=== PATIENT | female | born 1945 | race Caucasian/White ===

== ENCOUNTER 2022-11-01 06:53 | Inpatient (IN) | payer MEDICARE, BC ==
--- NOTE | 2022-11-01 07:36 | ED ---
General Adult HPI - General Chief complaint: Neuro Symptoms/Deficit Stated complaint: Left hand weakness Time Seen by Provider: 11/01/22 07:06 Source: patient Mode of arrival: ambulatory Limitations: no limitations - History of Present Illness Initial comments: Dictation was produced using [employer] dictation software. please excuse any grammatical, word or spelling errors. Chief Complaint: 77-year-old female presents with episodic left upper extremity paresthesias and weakness History of Present Illness: 77-year-old female has no past medical history of CVA. She has history of hypertension and treated breast cancer. Patient takes hypertensive medications. They're visiting from [place]. Patient states that she will this morning feeling fine. She tried to greens picker an object and all of a sudden lost dexterity and strength in her left upper extremity. She continually dropped items. Patient felt fine yesterday. States that her symptoms of weakness seemed to be sputtering. Patient since being in the ER does not complain of any weakness. She does complain of some paresthesias to the lungs. Doesn't feel like it is numb however does not feel right is what she mentions. at the bedside states that he did notany confusion or slurred speech The ROS documented in this emergency department record has been reviewed and confirmed by me. Those systems with pertinent positive or negative responses have been documented in the HPI. All other systems are other negative and/or noncontributory. - Related Data Home Medications Medication Instructions Recorded Confirmed Losartan [Cozaar] 50 mg PO DAILY 11/01/22 11/01/22 Metoprolol Succinate (ER) [Toprol 50 mg PO DAILY 11/01/22 11/01/22 Xl] Raloxifene [Evista] 60 mg PO HS 11/01/22 11/01/22 amLODIPine BESYLATE 5 mg PO DAILY 11/01/22 11/01/22 Allergies Allergy/AdvReac Type Severity Reaction Status Date / Time MARE Inhibitors AdvReac Cough Verified 11/01/22 07:04 Sulfa (Sulfonamide AdvReac Unknown Verified 11/01/22 07:04 Antibiotics) Childhood Review of Systems ROS Statement: Those systems with pertinent positive or pertinent negative responses have been documented in the HPI. ROS Other: All systems not noted in ROS Statement are negative. Past Medical History Past Medical History: Cancer, Hypertension Additional Past Medical History / Comment(s): Current tx for breast cancer History of Any Multi-Drug Resistant Organisms: None Reported Past Surgical History: Tubal Ligation Additional Past Surgical History / Comment(s): Breast surgery, eye surgery Smoking Status: Never smoker Past Alcohol Use History: None Reported Past Drug Use History: None Reported General Exam - General Exam Comments Initial Comments: PHYSICAL EXAM: General Impression: Alert and oriented x3, not in acute distress HEENT: Normocephalic atraumatic, extra-ocular movements intact, pupils equal and reactive to light bilaterally, mucous membranes moist. Cardiovascular: Heart regular rate and rhythm Chest: Able to complete full sentences, no retractions, no tachypnea Abdomen: abdomen soft, non-tender, non-distended, no organomegaly Musculoskeletal: Pulses present and equal in all extremities, no peripheral edema Motor: no focal deficits noted Neurological: CN II-XII grossly intact, no focal motor or sensory deficits noted, reported decreased sensation to light touch of the left forearm and distally Skin: Intact with no visualized rashes Psych: Normal affect and mood Limitations: no limitations Course Vital Signs 11/01/22 11/01/22 11/01/22 06:59 07:48 08:00 Temperature 97.5 F L Pulse Rate 70 74 68 Respiratory 18 18 16 Rate Blood Pressure 155/71 133/68 O2 Sat by Pulse 92 L 96 94 L Oximetry 11/01/22 11/01/22 08:30 09:00 Temperature Pulse Rate 75 65 Respiratory 16 18 Rate Blood Pressure 122/77 123/67 O2 Sat by Pulse 95 97 Oximetry EKG Findings - EKG Comments: EKG Findings:: My EKG interpretation: Ventricular rate 66, sinus rhythm,. Interval 193, QRS 97, QTC 398. No PA prolongation, no QTC prolongation, no ST or T-wave changes noted. Overall, this EKG is unremarkable Medical Decision Making - Medical Decision Making Was pt. sent in by a medical professional or institution (, PA, PL SQL DEVELOPER, urgent care, hospital, or [place] [facility] [place] facility...) When possible be specific @ -No Did you speak to anyone other than the patient for history (EMS, parent, family, police, friend...)? What history was obtained from this source @ -No Did you review nursing and triage notes (agree or disagree)? Why? @ -I reviewed and agree with nursing and triage notes Were old charts reviewed (outside hosp., previous admission, EMS record, old EKG, old radiological studies, urgent care reports/EKG's, [place] health [place] facility records)? Report findings @ -No old charts were reviewed Differential Diagnosis (chest pain, altered mental status, abdominal pain women, abdominal pain men, vaginal bleeding, musculoskeletal, weakness, fever, dyspnea, syncope, headache, dizziness, GI bleed, back pain, seizure, CVA, palp atations, mental health)? @ - Differential CVA: Ischemic stroke, hemorrhagic stroke, brain tumor, atypical migraine, Wernicke's encephalopathy, seizure, multiple sclerosis, meningitis, encephalitis, hypoglycemia, Guillain-Ross, electrolytes disturbance, myasthenia gravis.... This is not meant to be an all-inclusive list EKG interpreted by me (3pts min.). @ -see above X-rays interpreted by me (1pt min.). @ -Chest x-ray is nonacute CT interpreted by me (1pt min.). @ -CT scan of the brain is nonacute U/S interpreted by me (1pt. min.). @ -None done What testing was considered but not performed or refused? (CT, X-rays, U/S, labs)? Why? @ -None What meds were considered but not given or refused? Why? @ -None Did you discuss the management of the patient with other professionals (professionals i.e. , PA, PL SQL DEVELOPER, lab, RT, psych nurse, social science professor, vessel captain, teacher, weapons officer naval activity, telephonic case manager)? Give summary @ -Clinical presentation, labs and imaging studies were discussed with Dr. Otero for admission Was smoking cessation discussed for >3mins.? @ -No Was critical care preformed (if so, how long)? @ -No Were there social determinants of health that impacted care today? How? (Homelessness, low income, unemployed, alcoholism, drug addiction, transportation, low edu. Level, literacy, decrease access to med. care, care home, rehab)? @ -No Was there de-escalation of care discussed even if they declined (Discuss DNR or withdrawal of care, Hospice)? DNR status @ -No What co-morbidities impacted this encounter? (DM, HTN, Smoking, COPD, CAD, Cancer, CVA, ARF, Chemo, Hep., AIDS, mental health diagnosis, sleep apnea, morbid obesity)? @ -None Was patient admitted / discharged? Hospital course, mention meds given and route, prescriptions, significant lab abnormalities, going to OR and other pertinent info. @ -77-year-old female presents emergency Department with strokelike symptoms. Patient is a candidate for alteplase or thrombectomy due to low NIH score and risk outweigh benefits. While in the ER she had sputtering symptoms. Vital signs upon arrival are within acceptable limits. Labs unremarkable. Imaging studies are unremarkable. Patient given aspirin will be admitted with neurology consultation Undiagnosed new problem with uncertain prognosis? @ -No Drug Therapy requiring intensive monitoring for toxicity (Heparin, Nitro, Insulin, Cardizem)? @ -No Were any procedures done? @ -No Diagnosis/symptom? Acute, or Chronic, or Acute on Chronic? Uncomplicated (without systemic symptoms) or Complicated (systemic symptoms)? @ -1. Acute CVA Side effects of treatment? @ -No Exacerbation, Progression, or Severe Exacerbation? @ -No Poses a threat to life or bodily function? How? (Chest pain, [place], [place], pneumonia, PE, COPD, DKA, ARF, appy, cholecystitis, CVA, Diverticulitis, Homicidal, Suicidal, threat to staff... and all critical care pts) @ -yes - Lab Data Result diagrams: 11/01/22 07:37 11/01/22 07:37 Lab Results 11/01/22 11/01/22 11/01/22 Range/Units 07:37 07:37 07:37 WBC 4.2 (3.8-10.6) k/uL RBC 4.56 (3.80-5.40) m/uL Hgb 14.6 (11.4-16.0) gm/dL Hct 45.4 (34.0-46.0) % MCV 99.6 (80.0-100.0) fL MCH 32.1 (25.0-35.0) pg MCHC 32.2 (31.0-37.0) g/dL RDW 13.8 (11.5-15.5) % Plt Count 242 (150-450) k/uL MPV 7.8 Neutrophils % 71 % Lymphocytes % 21 % Monocytes % 5 % Eosinophils % 1 % Basophils % 0 % Neutrophils # 3.0 (1.3-7.7) k/uL Lymphocytes # 0.9 L (1.0-4.8) k/uL Monocytes # 0.2 (0-1.0) k/uL Eosinophils # 0.1 (0-0.7) k/uL Basophils # 0.0 (0-0.2) k/uL PT 10.2 (9.0-12.0) sec INR 1.0 (<1.2) APTT 23.3 (22.0-30.0) sec Sodium 141 (137-145) mmol/L Potassium 4.0 (3.5-5.1) mmol/L Chloride 105 (98-107) mmol/L Carbon Dioxide 25 (22-30) mmol/L Anion Gap 11 mmol/L BUN 16 (7-17) mg/dL Creatinine 0.78 (0.52-1.04) mg/dL Est GFR (CKD-EPI)AfAm 86 (>60 ml/min/1.73 sqM) Est GFR (CKD-EPI)NonAf 74 (>60 ml/min/1.73 sqM) Glucose 121 H (74-99) mg/dL Calcium 8.9 (8.4-10.2) mg/dL Total Bilirubin 0.8 (0.2-1.3) mg/dL AST 22 (14-36) U/L ALT 17 (4-34) U/L Alkaline Phosphatase 87 (38-126) U/L Creatine Kinase 73 (30-135) U/L Troponin I (0.000-0.034) ng/mL Total Protein 7.4 (6.3-8.2) g/dL Albumin 4.2 (3.5-5.0) g/dL 11/01/22 Range/Units 07:37 WBC (3.8-10.6) k/uL RBC (3.80-5.40) m/uL Hgb (11.4-16.0) gm/dL Hct (34.0-46.0) % MCV (80.0-100.0) fL MCH (25.0-35.0) pg MCHC (31.0-37.0) g/dL RDW (11.5-15.5) % Plt Count (150-450) k/uL MPV Neutrophils % % Lymphocytes % % Monocytes % % Eosinophils % % Basophils % % Neutrophils # (1.3-7.7) k/uL Lymphocytes # (1.0-4.8) k/uL Monocytes # (0-1.0) k/uL Eosinophils # (0-0.7) k/uL Basophils # (0-0.2) k/uL PT (9.0-12.0) sec INR (<1.2) APTT (22.0-30.0) sec Sodium (137-145) mmol/L Potassium (3.5-5.1) mmol/L Chloride (98-107) mmol/L Carbon Dioxide (22-30) mmol/L Anion Gap mmol/L BUN (7-17) mg/dL Creatinine (0.52-1.04) mg/dL Est GFR (CKD-EPI)AfAm (>60 ml/min/1.73 sqM) Est GFR (CKD-EPI)NonAf (>60 ml/min/1.73 sqM) Glucose (74-99) mg/dL Calcium (8.4-10.2) mg/dL Total Bilirubin (0.2-1.3) mg/dL AST (14-36) U/L ALT (4-34) U/L Alkaline Phosphatase (38-126) U/L Creatine Kinase (30-135) U/L Troponin I <0.012 (0.000-0.034) ng/mL Total Protein (6.3-8.2) g/dL Albumin (3.5-5.0) g/dL Disposition Clinical Impression: Cerebrovascular accident (CVA) Disposition: ADMITTED IP TO THIS [facility] Condition: Fair Referrals: Nonstaff,Physician [Primary Care Provider] - 1-2 days Decision Time: 09:00
[2022-11-01 07:46] LABS: Basophils % (A) 0 %; Eosinophils # (A) 0.1 k/uL (0-0.7); Eosinophils % (A) 1 %; HCT 45.4 % (34.0-46.0); HGB 14.6 gm/dL (11.4-16.0); Lymphocytes # (A) 0.9 k/uL (1.0-4.8); Lymphocytes % (A) 21 %; MCH 32.1 pg (25.0-35.0); MCHC 32.2 g/dL (31.0-37.0); MCV 99.6 fL (80.0-100.0); Mean Platelet Volume 7.8; Monocytes # (A) 0.2 k/uL (0-1.0); Monocytes % (A) 5 %; Neutrophils % (A) 71 %; Platelet Count 242 k/uL (150-450); RBC 4.56 m/uL (3.80-5.40); RDW 13.8 % (11.5-15.5); WBC 4.2 k/uL (3.8-10.6)
[2022-11-01 07:59] LABS: Partial Thromboplastin Time 23.3 sec (22.0-30.0); Prothrombin Time 10.2 sec (9.0-12.0)
[2022-11-01 08:05] LABS: Albumin 4.2 g/dL (3.5-5.0); Calcium 8.9 mg/dL (8.4-10.2); Total Bilirubin 0.8 mg/dL (0.2-1.3); Total Protein 7.4 g/dL (6.3-8.2)
--- NOTE | 2022-11-01 08:37 | XR ---
EXAMINATION TYPE: XR chest 1V portable DATE OF EXAM: 11/01/2022 COMPARISON: NONE HISTORY: Altered mental status and weakness. TECHNIQUE: Single frontal view of the chest is obtained. FINDINGS: There is no focal air space opacity, pleural effusion, or pneumothorax seen. The cardiac silhouette size is within normal limits. The osseous structures are intact. Overlying EKG leads are seen. IMPRESSION: No acute process.
--- NOTE | 2022-11-01 08:38 | CT ---
EXAMINATION TYPE: CT brain wo con DATE OF EXAM: 11/01/2022 HISTORY: left arm weakness. Acute onset neuro deficit. Dizziness. CT DLP: 1076.4 mGycm. Automated Exposure Control for Dose Reduction was Utilized. TECHNIQUE: CT scan of the head is performed without contrast. COMPARISON: None. FINDINGS: There is no acute intracranial hemorrhage or midline shift identified. There is mild-to-m oderate diffuse ventricular and sulcal prominence. There is mild to moderate low-attenuation in the deep and periventricular white matter. No suspicious opacification mastoid air cells bilaterally. Pe rsistent anterior metopic suture which is normal variant The globes are intact and the visualized sin uses are clear. IMPRESSION: No acute intracranial hemorrhage or midline shift. There is mild to moderate diffuse ag e-related cerebral atrophy and chronic small vessel ischemic change noted.
[2022-11-01] MEDS ORDERED: ASPIRIN 81 MG PO STA (09:08)
[2022-11-01] MEDS ORDERED: NALOXONE 0.4 MG/ML 1 ML VIAL IV PRN (09:29)
--- NOTE | 2022-11-01 17:30 | P.CNNES ---
History of Present Illness Consult date: 11/01/22 Requesting physician: Bebeto Cunningham Reason for Consult: left arm numbness History of Present Illness: This is a 77-year-old woman with history of hypertension, borderline hypercholesterolemia who presented emergency department because of left upper extremity weakness area did patient stated that she woke up at 4:30 and was at baseline. Then 5 AM she noticed that her left pinky finger was swollen and she could not get her ring out. Denies any weakness or numbness or any focal deficit. Then the around 6 AM she noticed that she is having left hand weakness. She felt she was dropping things out of the left hand and happened multiple times. She denies any numbness to me but it seems that she notified her that she had some numbness in the left upper extremity at. Her left upper extremity weakness lasted about 15 minutes but happen multiple times and the last episode was around between 10 and 11 AM today. Otherwise denies of any other neurological issues appear denies history of stroke or TIAs. She denies being on any antiplatelets. Denies history of atrial fibrillation or flutter. Currently the patient feels she is back to baseline. Some of the workup during his hospital visit consisted of: CBC with differential on top present management metabolic panel is unremarkable CT of the head is reported as no acute intracranial hemorrhage of midline shift. There is mild to moderate diffuse age-related cerebral atrophy and chronic small vessel ischemic changes noted. I personally reviewed the CT I agree there is no acute or subacute ischemia. There is no bleed. EKG is reported as sinus rhythm. Borderline left axis deviation. The ED patient has low NIH stroke scale and no IV TPA because of the risk outweighed the benefit. Review of Systems Review of system: The 12 point system was reviewed and apparent positive and negative per HPI. Past Medical History Past Medical History: Cancer, Hypertension Additional Past Medical History / Comment(s): Current tx for breast cancer History of Any Multi-Drug Resistant Organisms: None Reported Past Surgical History: Tubal Ligation Additional Past Surgical History / Comment(s): Lt breast lumpectomy, eye surgery Smoking Status: Never smoker Past Alcohol Use History: None Reported Past Drug Use History: None Reported Medications and Allergies Home Medications Medication Instructions Recorded Confirmed Type Losartan [Cozaar] 50 mg PO DAILY 11/01/22 11/01/22 History Metoprolol Succinate (ER) [Toprol 50 mg PO DAILY 11/01/22 11/01/22 History Xl] Raloxifene [Evista] 60 mg PO HS 11/01/22 11/01/22 History amLODIPine BESYLATE 5 mg PO DAILY 11/01/22 11/01/22 History Allergies Allergy/AdvReac Type Severity Reaction Status Date / Time MARE Inhibitors AdvReac Cough Verified 11/01/22 11:35 Sulfa (Sulfonamide AdvReac Unknown Verified 11/01/22 11:35 Antibiotics) Childhood Physical Examination - Vital Signs Vital Signs: Vital Signs Temp Pulse Pulse Resp BP BP Pulse Ox 11/01/22 12:00 98.1 F 71 16 134/70 97 11/01/22 11:03 98.2 F 64 18 123/70 99 11/01/22 09:00 65 18 123/67 97 11/01/22 08:30 75 16 122/77 95 11/01/22 08:00 68 16 133/68 94 L 11/01/22 07:48 74 18 96 11/01/22 06:59 97.5 F L 70 18 155/71 92 L Intake and Output 11/01/22 11/01/22 11/01/22 06:59 14:59 22:59 Intake Total 110 Balance 110 Intake: Oral 110 Other: Weight 77.111 kg 77.111 kg GENERAL: The patient is lying in bed and is not in acute distress. CHEST: No edema in extremities. LUNG: Not labored breathing. NEUROLOGICAL: Higher mental function: The patient is awake, alert, oriented to self, place and time. Patient is following commands. No aphasia and no neglect. Cranial nerves: The pupils are round, equal and reactive to light and accommodation. Visual pope are full to confrontation throughout. Extraocular movement is intact no nystagmus is noted. Facial sensation is normal to touch throughout. The facial strength is normal throughout. Hearing is normal bilat erally to hand rub. Tongue is midline and moved [id number] without any difficulty. No dysarthria is noted. Shoulder shrug is normal bilaterally. Motor: The strength is 5 over 5 throughout. Normal tone and bulk. Cerebellum: Normal finger to nose bilaterally. Sensation: Sensation is normal to touch throughout. Reflexes (right/left): 2+ throughout. Plantars are downgoing bilaterally. Results - Laboratory Findings CBC and BMP: 11/01/22 07:37 11/01/22 07:37 Abnormal Lab Findings: Abnormal Labs 11/01/22 11/01/22 07:37 07:37 Lymphocytes # 0.9 L Glucose 121 H Assessment and Plan Assessment: This is a 77-year-old woman who presented the to the emergency because of left upper extremity weakness and some numbness but predominantly weakness and had multiple episode today. Because episode of left upper extremity weakness distally with some numbness: Likely TIA History of hypertension Borderline hypercholesteremia Plan: I ordered MRI of the brain with and without. The patient was given aspirin 324 mg once in the ED. I started the patient on aspirin 325 mg daily and Plavix 75 mg daily. I*on Lipitor 40 mg daily at bedtime for secondary stroke prophylaxis Carotid duplex, 2-D echo is ordered pending. I ordered lipid panel, hemoglobin A1c, TSH. Every 4 hours neuro checks Placed on cardiac monitoring PT and OT are consulted We'll defer the rest of the medical management to primary team For DVT prophylaxis start the patient on subcu heparin 5000 units every 12 hours The plan was discussed with the patient, her was at bedside and her nurse. Thank you consultation Time with Patient: Greater than 30
[2022-11-01] MEDS: CLOPIDOGREL 75 MG TAB PO SCH (17:52)
--- NOTE | 2022-11-01 19:02 | P.HPIM ---
History of Present Illness H&P Date: 11/01/22 History of Presenting Illness: Patient is a very pleasant 77-year-old female with a past medical history of hypertension, hyperlipidemia, and breast cancer status post lumpectomy currently on Evista. She presented to the emergency department secondary to left hand numbness and weakness. Patient reports awakening this morning and felt as though her peak may have been swollen and was unable to get her rings off her pinky finger. 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 Patient reports she went to put a plastic bag in her car but when she bent over to pick it up she was unable to grab it or hold onto it dropping at 8 times. This is when she realized she was having numbness and weakness in her left hand. In addition patient reports pain/tingling sensation to her right temporal/occipital region of her head accompanied by an intermittent episode of changes in her vision. She denies hitting her head or experiencing any falls or recent injuries and denies experiencing any neck or back pain. Patient denies being on any blood thinners and denies ever having an experience like this in the past. She denies having any fevers, chills, dizziness, lightheadedness, changes in hearing or tinnitus, difficulty with her speech or swallowing, chest pain, palpitations, shortness of breath, or experiencing any noted numbness or weakness in her lower extremities. She states this numbness/tingling and weakness in her left hand has waxed and waned over the past few hours. Patient presented to the emergency department and underwent full evaluation. CT brain was completed and negative for acute intercranial hemorrhage revealing mild to moderate diffuse age related cerebral atrophy and chronic small vessel ischemic changes. EKG completed showing normal sinus rhythm at 66 bpm with no noted T wave or ST abnormality showing no signs of acute ischemia upon personal review and interpretation. Chest x-ray negative for acute process. Labs completed and reviewed. CBC, coagulation profile, and CMP were unremarkable. Troponin negative at less than 0.012. TSH normal at 2.310. Patient given aspirin 324 mg by mouth 1 dose and admitted under our services with consultation to neurology. Review of systems: Pertinent positives and negatives as discussed in HPI, a complete review of systems was performed and all other systems are negative. Physical exam: Vital signs reviewed and stable. General: Nontoxic, no distress and appears stated age. Derm: Skin warm and dry, normal coloration for ethnicity. Head: Atraumatic, normocephalic and symmetric. Eyes: EOMs intact, no lid lag, and anicteric sclera Mouth: no lip lesions, mucus membranes moist Cardiovascular: regular rate and rhythm with normal S1S2, systolic murmur, positive posterior tibial pulses bilaterally, and cap refill < 2 seconds. Lungs: Respirations even, regular, and unlabored on room air. Lungs CTA bilaterally, no rhonchi, no rales, no wheezing, and no accessory muscle usage. Abdominal: soft, nontender to palpation, no guarding, no appreciable organomegaly Ext: ROM intact. No gross muscle atrophy, no edema, no contractures Neuro: Speech clear, face symmetrical and CN II-XII grossly intact with no noted focal neuro deficitsGCS 15. Currently no neurological deficits noted at this time. Psych: Alert and oriented to person, place, time, and situation. Appropriate and pleasant affect. Assessment and Plan of Care: Left upper extremity weakness, numbness and tingling, rule out TIA versus CVA Hypertension Hyperlipidemia History of breast cancer status post lumpectomy on Evista -CT brain was completed and negative for acute intercranial hemorrhage revealing mild to moderate diffuse age related cerebral atrophy and chronic small vessel ischemic changes. -EKG completed showing normal sinus rhythm at 66 bpm with no noted T wave or ST abnormality showing no signs of acute ischemia upon personal review and interpretation. -Labs completed and reviewed. CBC, coagulation profile, and CMP were unremarkable. Troponin negative at less than 0.012. TSH normal at 2.310. -Patient given aspirin 324 mg by mouth 1 dose and admitted under our services with consultation to neurology. -Order placed for echocardiogram and carotid Dopplers -Called and discussed with neurologist, neurology to evaluate and reports plans to order MRI brain -Discussed with neurology patient to be placed on aspirin 325 mg daily, Plavix 75 mg daily, and atorvastatin 40 mg daily. -Lipid profile hemoglobin A1c to be completed with a.m. labs. -Patient to be placed on telemetry monitoring -Continue neuro checks every 4 hours -Hold the Evista at this time as has been known to result in thromboembolism and stroke -Allow for permissive hypertension over the next 24 hours and patient may resume daily antihypertensive medications with amlodipine 5 mg daily, losartan 50 mg daily, and metoprolol 50 mg daily starting tomorrow morning. The patient is admitted with an anticipated greater than 2 midnight stay for evaluation of a CVA versus TIA CODE STATUS: Full code DVT prophylaxis: Heparin Discussed with: Patient, patient's , ED physician, and neurologist Anticipated discharge date: Clinical course to determine Anticipated discharge place:Home Patient was seen independently by Nurse Practitioner. This document was prepared using [employer] dictation software. Please allow for errors in dough machine operator while rare they do occur. Reid Puente NP rendered care for this patient independently, reviewed the findings and plan as documented in the note above. I did not physically speak with or examine the patient on this date. Past Medical History Past Medical History: Cancer, Hypertension Additional Past Medical History / Comment(s): Current tx for breast cancer History of Any Multi-Drug Resistant Organisms: None Reported Past Surgical History: Tubal Ligation Additional Past Surgical History / Comment(s): Breast surgery, eye surgery Smoking Status: Never smoker Past Alcohol Use History: None Reported Past Drug Use History: None Reported Medications and Allergies Home Medications Medication Instructions Recorded Confirmed Type Losartan [Cozaar] 50 mg PO DAILY 11/01/22 11/01/22 History Metoprolol Succinate (ER) [Toprol 50 mg PO DAILY 11/01/22 11/01/22 History Xl] Raloxifene [Evista] 60 mg PO HS 11/01/22 11/01/22 History amLODIPine BESYLATE 5 mg PO DAILY 11/01/22 11/01/22 History Allergies Allergy/AdvReac Type Severity Reaction Status Date / Time MARE Inhibitors AdvReac Cough Verified 11/01/22 11:35 Sulfa (Sulfonamide AdvReac Unknown Verified 11/01/22 11:35 Antibiotics) Childhood Physical Exam Vitals: Vital Signs Temp Pulse Resp BP Pulse Ox 11/01/22 09:00 65 18 123/67 97 11/01/22 08:30 75 16 122/77 95 11/01/22 08:00 68 16 133/68 94 L 11/01/22 07:48 74 18 96 11/01/22 06:59 97.5 F L 70 18 155/71 92 L Intake and Output 10/31/22 11/01/22 11/01/22 22:59 06:59 14:59 Other: Weight 77.111 kg Results CBC & Chem 7: 11/01/22 07:37 11/01/22 07:37 Labs: Abnormal Lab Results - Last 24 Hours (Table) 11/01/22 11/01/22 Range/Units 07:37 07:37 Lymphocytes # 0.9 L (1.0-4.8) k/uL Glucose 121 H (74-99) mg/dL
[2022-11-01] MEDS: HEPARIN SODIUM,PORCINE/PF 5,000 UNIT/0.5 ML SYRINGE SQ SCH (21:31)
[2022-11-01] MEDS: ATORVASTATIN 40 MG TAB PO SCH (21:32)
--- NOTE | 2022-11-01 21:41 | US ---
EXAMINATION TYPE: US carotid duplex BILAT DATE OF EXAM: 11/01/2022 Exam done portable COMPARISON: NONE CLINICAL INDICATION: Female, 77 years old with history of tia vs cva; TECHNIQUE: Carotid duplex ultrasound examination. Indirect Doppler criteria was utilized. FINDINGS: EXAM MEASUREMENTS: RIGHT: Peak Systolic Velocity (PSV) cm/sec ----- Right CCA: 75.4 ----- Right ICA: 140.0 ----- Right ECA: 216.0 ICA/CCA ratio: 1.9 RIGHT: End Diastole cm/sec ----- Right CCA: 14.3 ----- Right ICA: 30.6 ----- Right ECA: 1.3 LEFT: Peak Systolic Velocity (PSV) cm/sec ----- Left CCA: 86.1 ----- Left ICA: 131.0 ----- Left ECA: 137.0 ICA/CCA ratio: 1.5 LEFT: End Diastole cm/sec ----- Left CCA: 13.2 ----- Left ICA: 29.6 ----- Left ECA: 6.3 VERTEBRALS (direction of flow): Right Vertebral: Antegrade Left Vertebral: Antegrade Rhythm: Normal No significant stenosis. Calcified atherosclerosis of the right carotid bulb, proximal internal and e xternal carotid arteries . Mild atherosclerotic plaquing of the left carotid bulb and proximal agriculture intern al carotid arteries. IMPRESSION: 1. No sonographic evidence for hemodynamically significant carotid stenosis bilaterally. 2. Bilateral atherosclerotic disease as detailed above.
[2022-11-02 09:28] LABS: Chol/HDL Ratio 4.17 Ratio; LDL Cholesterol,Calculated 166.5 mg/dL (0.0-131.0); VLDL Calculation 17.44 mg/dL (5.00-40.00)
[2022-11-02] MEDS: CLOPIDOGREL 75 MG TAB PO SCH (10:09)
[2022-11-02] MEDS: amLODIPine 5 MG TAB PO SCH (10:09)
[2022-11-02] MEDS: METOPROLOL SUCCINATE (ER) 50 MG TAB.ER.24H PO SCH (10:09)
[2022-11-02] MEDS: HEPARIN SODIUM,PORCINE/PF 5,000 UNIT/0.5 ML SYRINGE SQ SCH ×2 (10:09→22:19)
[2022-11-02] MEDS: ASPIRIN 325 MG TAB PO SCH (10:09)
[2022-11-02] MEDS: LOSARTAN 50 MG TAB PO SCH (10:09)
--- NOTE | 2022-11-02 16:08 | P.PN ---
Subjective Progress Note Date: 11/02/22 The patient is seen at bedside and feels at baseline. Denies of any further neurological issues. Objective - Vital Signs Vital signs: Vital Signs Temp 98.2 F 11/02/22 12:00 Pulse 65 11/02/22 14:00 Resp 16 11/02/22 14:00 BP 120/67 11/02/22 12:00 Pulse Ox 95 11/02/22 12:00 FiO2 Intake & Output 11/01/22 11/02/22 11/02/22 18:59 06:59 18:59 Intake Total 620 1000 220 Balance 620 1000 220 Weight 77.111 kg Intake: Oral 620 1000 220 Other: Voiding Method Toilet # Voids 2 1 - Exam GENERAL: The patient is lying in bed and is not in acute distress. NEUROLOGICAL: Higher mental function: The patient is awake, alert, oriented to self, place and time. Patient is following commands. No aphasia and no neglect. Cranial nerves: The pupils are round, equal and reactive to light and accommodation. Visual pope are full to confrontation throughout. Extraocular movement is intact no nystagmus is noted. Facial sensation is normal to touch throughout. The facial strength is normal throughout. Hearing is normal bilaterally to hand rub. Tongue is midline and moved [id number] without any difficulty. No dysarthria is noted. Shoulder shrug is normal bilaterally. Motor: The strength is 5 over 5 throughout. Normal tone and bulk. Cerebellum: Normal finger to nose bilaterally. Sensation: Sensation is normal to touch throughout. Reflexes (right/left): 2+ throughout. Plantars are downgoing bilaterally. Some of the workup during his hospital visit consisted of: CBC with differential on top present management metabolic panel is unremarkable Lipid panel is triglyceride 87, cholesterol is 242, LDLs 166 and HDL 58 Vitamin B12 is 309, folate is 9.60 TSH is 2.3.0 [address] is 5.9. CT of the head is reported as no acute intracranial hemorrhage of midline shift. There is mild to moderate diffuse age-related cerebral atrophy and chronic small vessel ischemic changes noted. I personally reviewed the CT I agree there is no acute or subacute ischemia. There is no bleed. EKG is reported as sinus rhythm. Borderline left axis deviation. Carotid duplex is reported as no sonographic at evidence for hemodynamically significant carotid stenosis bilaterally. Bilateral atherosclerotic disease - Labs CBC & Chem 7: 11/01/22 07:37 11/01/22 07:37 Labs: Abnormal Lab Results - Last 24 Hours (Table) 11/01/22 Range/Units 07:37 Cholesterol 242.00 H (0.00-200.00) mg/dL LDL Cholesterol, Calc 166.5 H (0.0-131.0) mg/dL Assessment and Plan Assessment: This is a 77-year-old woman who presented the to the emergency because of left upper extremity weakness and some numbness but predominantly weakness and had multiple episode today. Recurrent episodes of left upper extremity weakness distally with some numbness: Likely TIA Low normal vitamin B12 (309) History of hypertension Borderline hypercholesteremia Plan: I started the patient on aspirin 325 mg daily and Plavix 75 mg daily. Recommend the patient to be on dual antiplatelets and after 21 days, continue aspirin indefinitely but stop Plavix. Continue Lipitor 40 mg daily at bedtime for secondary stroke prophylaxis Pending MRI Brain and 2-D echo. Every 4 hours neuro checks Placed on cardiac monitoring PT and OT are consulted Ordered routine EEG since having repeated episodes to rule out underlying seizure or discharges. For low normal vitamin B12: started the patient on Vitamin B12 1000mcg daily with IM once. We'll defer the rest of the medical management to primary team For DVT prophylaxis: subcu heparin 5000 units every 12 hours The plan was discussed with the patient, her was at bedside and her nurse. Dr. Nieto will start neurology service tomorrow A.M. Time with Patient: Less than 30
--- NOTE | 2022-11-02 16:22 | P.PN ---
Subjective Progress Note Date: 11/02/22 Hospital Course: Patient is a very pleasant 77-year-old female with a past medical history of hypertension, hyperlipidemia, and breast cancer status post lumpectomy currently on Evista. She presented to the emergency department secondary to left hand numbness and weakness. Patient reports awakening this morning and felt as though her peak may have been swollen and was unable to get her rings off her pinky finger. Patient states that she did not think anything else up later on in the morning she noticed that she was dropping things with her left hand and that her hand was not doing what she wanted to do, for example she was unable to make a fist or hand picker any objects. Patient reports she went to put a plastic bag in her car but when she bent over to pick it up she was unable to grab it or hold onto it dropping at 8 times. This is when she realized she was having numbness and weakness in her left hand. In addition patient reports pain/tingling sensation to her right temporal/occipital region of her head accompanied by an intermittent episode of changes in her vision. She denies hitting her head or experiencing any falls or recent injuries and denies experiencing any neck or back pain. Patient denies being on any blood thinners and denies ever having an experience like this in the past. She denies having any fevers, chills, dizziness, lightheadedness, changes in hearing or tinnitus, difficulty with her speech or swallowing, chest pain, palpitations, shortness of breath, or experiencing any noted numbness or weakness in her lower extremities. She states this numbness/tingling and weakness in her left hand has waxed and waned over the past few hours. Patient presented to the emergency department and underwent full evaluation. CT brain was completed and negative for acute intercranial hemorrhage revealing mild to moderate diffuse age related cerebral atrophy and chronic small vessel ischemic changes. EKG completed showing normal sinus rhythm at 66 bpm with no noted T wave or ST abnormality showing no signs of acute ischemia upon personal review and interpretation. Chest x-ray negative for acute process. Labs completed and reviewed. CBC, coagulation profile, and CMP were unremarkable. Troponin negative at less than 0.012. TSH normal at 2.310. Patient given aspirin 324 mg by mouth 1 dose and admitted under our services with consultation to neurology. Physical exam: Patient seen and fully evaluated at bedside. Patient sitting up in chair dating at the bedside this morning. She reports full sensation back and left hand with no further episodes of numbness/tingling/weakness since yesterday morning. Patient does continue to report a mild tingling sensation/headache to right temporal/occipital region of her head. Vital signs reviewed and stable. General: Nontoxic, no distress and appears stated age. Derm: Skin warm and dry, normal coloration for ethnicity. Head: Atraumatic, normocephalic and symmetric. Eyes: EOMs intact, no lid lag, and anicteric sclera Mouth: no lip lesions, mucus membranes moist Cardiovascular: regular rate and rhythm with normal S1S2, systolic murmur, positive posterior tibial pulses bilaterally, and cap refill < 2 seconds. Lungs: Respirations even, regular, and unlabored on room air. Lungs CTA bilaterally, no rhonchi, no rales, no wheezing, and no accessory muscle usage. Abdominal: soft, nontender to palpation, no guarding, no appreciable organomegaly Ext: ROM intact. No gross muscle atrophy, no edema, no contractures Neuro: Speech clear, face symmetrical and CN II-XII grossly intact with no noted focal neuro deficitsGCS 15. Currently no neurological deficits noted at this time. Psych: Alert and oriented to person, place, time, and situation. Appropriate and pleasant affect. Assessment and Plan of Care: Left upper extremity weakness, numbness and tingling, rule out TIA versus CVA Right temporal headache Hypertension Hyperlipidemia History of breast cancer status post lumpectomy on Evista -Hemoglobin A1c resulting of 5.9%. Lipid profile revealing slightly elevated cholesterol of 242 and LDL of 166. Patient is on atorvastatin 40 mg daily at this time and will plan to discharge patient home on this medication as well. -Discussed plan of care with neurologist, patient to undergo MRI is ordered and to continue daily medication regimen with aspirin and Plavix pending further results. -Bilateral carotid Dopplers were completed negative showing no sonographic evidence for hemodynamically significant carotid stenosis. -Echocardiogram and EEG were ordered and awaiting completion. -MRI brain was ordered and awaiting completion. -Patient to continue with aspirin 325 mg daily, Plavix 75 mg daily, and atorvastatin 40 mg daily. -Continue telemetry monitoring -Continue neuro checks every 4 hours -Continue to Hold the Evista at this time as has been known to result in thromboembolism and stroke -Continue daily antihypertensive medications with amlodipine 5 mg daily, losartan 50 mg daily, and metoprolol 50 mg daily starting tomorrow morning. CODE STATUS: Full code DVT prophylaxis: Heparin Discussed with: Patient, RN and neurologist Anticipated discharge date: Clinical course to determine Anticipated discharge place:Home Patient was seen independently by Nurse Practitioner. This document was prepared using [employer] dictation software. Please allow for errors in racking machine operator while rare they do occur. Reid Puente NP rendered care for this patient independently, reviewed the findings and plan as documented in the note above. I did not physically speak with or examine the patient on this date. Objective - Vital Signs Vital signs: Vital Signs Temp 98.1 F 11/02/22 04:00 Pulse 90 11/02/22 04:00 Resp 18 11/02/22 04:00 BP 164/74 11/02/22 04:00 Pulse Ox 96 11/02/22 04:00 FiO2 Intake & Output 11/01/22 11/02/22 11/02/22 18:59 06:59 18:59 Intake Total 620 1000 Balance 620 1000 Weight 77.111 kg Intake: Oral 620 1000 Other: # Voids 2 1 - Labs CBC & Chem 7: 11/01/22 07:37 11/01/22 07:37
[2022-11-02] MEDS ORDERED: CYANOCOBALAMIN 1,000 MCG/ML 1 ML VIAL IM ONE (16:30)
[2022-11-02] MEDS: ATORVASTATIN 40 MG TAB PO SCH (22:19)
[2022-11-03] MEDS: LOSARTAN 50 MG TAB PO SCH (09:17)
[2022-11-03] MEDS: CYANOCOBALAMIN 500 MCG TAB PO SCH (09:17)
[2022-11-03] MEDS: CLOPIDOGREL 75 MG TAB PO SCH (09:17)
[2022-11-03] MEDS: HEPARIN SODIUM,PORCINE/PF 5,000 UNIT/0.5 ML SYRINGE SQ SCH ×2 (09:18→21:17)
[2022-11-03] MEDS: amLODIPine 5 MG TAB PO SCH (09:18)
[2022-11-03] MEDS: ASPIRIN 325 MG TAB PO SCH (09:18)
[2022-11-03] MEDS: METOPROLOL SUCCINATE (ER) 50 MG TAB.ER.24H PO SCH (09:18)
--- NOTE | 2022-11-03 15:22 | P.PN ---
Subjective Progress Note Date: 11/03/22 Hospital Course: Patient is a very pleasant 77-year-old female with a past medical history of hypertension, hyperlipidemia, and breast cancer status post lumpectomy currently on Evista. She presented to the emergency department secondary to left hand numbness and weakness. Patient reports awakening this morning and felt as though her peak may have been swollen and was unable to get her rings off her pinky finger. Patient states that she did not think anything else up later on in the morning she noticed that she was dropping things with her left hand and that her hand was not doing what she wanted to do, for example she was unable to make a fist or poultry picker any objects. Patient reports she went to put a plastic bag in her car but when she bent over to pick it up she was unable to grab it or hold onto it dropping at 8 times. This is when she realized she was having numbness and weakness in her left hand. In addition patient reports pain/tingling sensation to her right temporal/occipital region of her head accompanied by an intermittent episode of changes in her vision. She denies hitting her head or experiencing any falls or recent injuries and denies experiencing any neck or back pain. Patient denies being on any blood thinners and denies ever having an experience like this in the past. She denies having any fevers, chills, dizziness, lightheadedness, changes in hearing or tinnitus, difficulty with her speech or swallowing, chest pain, palpitations, shortness of breath, or experiencing any noted numbness or weakness in her lower extremities. She states this numbness/tingling and weakness in her left hand has waxed and waned over the past few hours. Patient presented to the emergency department and underwent full evaluation. CT brain was completed and negative for acute intercranial hemorrhage revealing mild to moderate diffuse age related cerebral atrophy and chronic small vessel ischemic changes. EKG completed showing normal sinus rhythm at 66 bpm with no noted T wave or ST abnormality showing no signs of acute ischemia upon personal review and interpretation. Chest x-ray negative for acute process. Labs completed and reviewed. CBC, coagulation profile, and CMP were unremarkable. Troponin negative at less than 0.012. TSH normal at 2.310. Patient given aspirin 324 mg by mouth 1 dose and admitted under our services with consultation to neurology. Physical exam: Patient seen and fully evaluated at bedside. Patient sitting up in chair knitting at this time while visiting with She states no further episodes of numbness/tingling/weakness since 11/01/22. Patient does continue to report an intermittent mild tingling sensation/headache to right tempor al/occipital region of her head. Vital signs reviewed and stable. General: Nontoxic, no distress and appears stated age. Derm: Skin warm and dry, normal coloration for ethnicity. Head: Atraumatic, normocephalic and symmetric. Eyes: EOMs intact, no lid lag, and anicteric sclera Mouth: no lip lesions, mucus membranes moist Cardiovascular: regular rate and rhythm with normal S1S2, systolic murmur, positive posterior tibial pulses bilaterally, and cap refill < 2 seconds. Lungs: Respirations even, regular, and unlabored on room air. Lungs CTA bilaterally, no rhonchi, no rales, no wheezing, and no accessory muscle usage. Abdominal: soft, nontender to palpation, no guarding, no appreciable organomegaly Ext: ROM intact. No gross muscle atrophy, no edema, no contractures Neuro: Speech clear, face symmetrical and CN II-XII grossly intact with no noted focal neuro deficitsGCS 15. Currently no neurological deficits noted at this time. Psych: Alert and oriented to person, place, time, and situation. Appropriate and pleasant affect. Assessment and Plan of Care: Left upper extremity weakness, numbness and tingling, rule out TIA versus CVA Right temporal headache Hypertension Hyperlipidemia History of breast cancer status post lumpectomy on Evista -Hemoglobin A1c resulting of 5.9%. Lipid profile revealing slightly elevated cholesterol of 242 and LDL of 166. Patient is on atorvastatin 40 mg daily at this time and will plan to discharge patient home on this medication as well. -Discussed plan of care with neurologist, patient to undergo MRI is ordered and to continue daily medication regimen with aspirin and Plavix pending further results. -Bilateral carotid Dopplers were completed negative showing no sonographic evidence for hemodynamically significant carotid stenosis. -Echocardiogram ordered and awaiting completion and EEG was completed and awaiting results. -MRI brain was ordered and awaiting completion. -Patient to continue with aspirin 325 mg daily, Plavix 75 mg daily, and atorvastatin 40 mg daily. -Continue telemetry monitoring -Continue neuro checks every 4 hours -Continue to Hold the Evista at this time as has been known to result in thromboembolism and stroke -Continue daily antihypertensive medications with amlodipine 5 mg daily, losartan 50 mg daily, and metoprolol 50 mg daily starting tomorrow morning. CODE STATUS: Full code DVT prophylaxis: Heparin Discussed with: Patient, RN and neurologist Anticipated discharge date: Clinical course to determine Anticipated discharge place:Home Patient was seen independently by Nurse Practitioner. This document was prepared using [employer] Chinese dictation software. Please allow for errors in instrument installer while rare they do occur. Reid Puente NP rendered care for this patient independently, reviewed the findings and plan as documented in the note above. I did not physically speak with or examine the patient on this date. Objective - Vital Signs Vital signs: Vital Signs Temp 98.1 F 11/03/22 04:00 Pulse 80 11/03/22 04:00 Resp 18 11/03/22 04:00 BP 96/58 11/03/22 04:00 Pulse Ox 95 11/03/22 04:00 FiO2 Intake & Output 11/02/22 11/03/22 11/03/22 18:59 06:59 18:59 Intake Total 330 Balance 330 Intake: Oral 330 Other: Voiding Method Toilet Toilet # Voids 2 1 - Labs CBC & Chem 7: 11/01/22 07:37 11/01/22 07:37 Labs: Abnormal Lab Results - Last 24 Hours (Table) 11/01/22 Range/Units 07:37 Cholesterol 242.00 H (0.00-200.00) mg/dL LDL Cholesterol, Calc 166.5 H (0.0-131.0) mg/dL
--- NOTE | 2022-11-03 17:33 | P.PN ---
Subjective Progress Note Date: 11/03/22 Patient was initially seen by Dr. Florencio Magaña. Please refer to his note for details. Patient is a 77-year-old female who had recurrent transient left upper extremity weakness and numbness. At present patient has no symptoms. Patient's was also present today. Patient states that she has been walking well in the hallway. She feels back to baseline. Patient was not taking any antiplatelet medication prior to arrival to the hospital. Some of the workup during his hospital visit consisted of: CBC with differential on top present management metabolic panel is unremarkable Lipid panel is triglyceride 87, cholesterol is 242, LDLs 166 and HDL 58 Vitamin B12 is 309, folate is 9.60 TSH is 2.3.0 [address] is 5.9. CT of the head is reported as no acute intracranial hemorrhage of midline shift. There is mild to moderate diffuse age-related cerebral atrophy and chronic small vessel ischemic changes noted. I personally reviewed the CT I agree there is no acute or subacute ischemia. There is no bleed. EKG is reported as sinus rhythm. Borderline left axis deviation. Carotid duplex is reported as no sonographic at evidence for hemodynamically significant carotid stenosis bilaterally. Bilateral atherosclerotic disease Objective - Vital Signs Vital signs: Vital Signs Temp 97.9 F 11/03/22 08:00 Pulse 66 11/03/22 14:00 Resp 16 11/03/22 14:00 BP 110/71 11/03/22 12:00 Pulse Ox 94 L 11/03/22 12:00 FiO2 Intake & Output 11/02/22 11/03/22 11/03/22 18:59 06:59 18:59 Intake Total 330 440 Balance 330 440 Intake: Oral 330 440 Other: Voiding Method Toilet Toilet Toilet # Voids 2 1 2 - Exam Patient's mental status, speech and language functions are normal. Cranial nerves are normal. Muscles are normal. No ataxia. Sensations equal - Labs CBC & Chem 7: 11/01/22 07:37 11/01/22 07:37 Assessment and Plan Assessment: This is a 77-year-old woman who presented the to the emergency because of recurrent left upper extremity weakness and some numbness but predominantly weakness and had multiple episode on the day of arrival. Recurrent episodes of left upper extremity weakness distally with some numbness: Likely TIA Low normal vitamin B12 (309) History of hypertension Borderline hypercholesteremia Plan: I started the patient on aspirin 325 mg daily and Plavix 75 mg daily. Recommend the patient to be on dual antiplatelets and after 21 days, continue aspirin indefinitely but stop Plavix. Patient was not taking any antiplatelet medication at home prior. Continue Lipitor 40 mg daily at bedtime for secondary stroke prophylaxis Pending MRI Brain and 2-D echo. Every 4 hours neuro checks Placed on cardiac monitoring PT and OT are consulted Routine EEG is normal awake pattern. No epileptiform activity was seen. For low normal vitamin B12: started the patient on Vitamin B12 1000mcg daily with IM once. We'll defer the rest of the medical management to primary team For DVT prophylaxis: subcu heparin 5000 units every 12 hours
[2022-11-03] MEDS: ATORVASTATIN 40 MG TAB PO SCH (21:16)
[2022-11-04] MEDS: ASPIRIN 325 MG TAB PO SCH (08:59)
[2022-11-04] MEDS: amLODIPine 5 MG TAB PO SCH (08:59)
[2022-11-04] MEDS: METOPROLOL SUCCINATE (ER) 50 MG TAB.ER.24H PO SCH (08:59)
[2022-11-04] MEDS: LOSARTAN 50 MG TAB PO SCH (08:59)
[2022-11-04] MEDS: CYANOCOBALAMIN 500 MCG TAB PO SCH (08:59)
[2022-11-04] MEDS: HEPARIN SODIUM,PORCINE/PF 5,000 UNIT/0.5 ML SYRINGE SQ SCH ×2 (09:00→19:54)
[2022-11-04] MEDS: CLOPIDOGREL 75 MG TAB PO SCH (09:00)
--- NOTE | 2022-11-04 09:58 | P.PN ---
Subjective Progress Note Date: 11/04/22 Hospital Course: Patient is a very pleasant 77-year-old female with a past medical history of hypertension, hyperlipidemia, and breast cancer status post lumpectomy currently on Evista. She presented to the emergency department secondary to left hand numbness and weakness. Patient reports awakening this morning and felt as though her peak may have been swollen and was unable to get her rings off her pinky finger. Patient states that she did not think anything else up later on in the morning she noticed that she was dropping things with her left hand and that her hand was not doing what she wanted to do, for example she was unable to make a fist or cook pickled meat any objects. Patient reports she went to put a plastic bag in her car but when she bent over to pick it up she was unable to grab it or hold onto it dropping at 8 times. This is when she realized she was having numbness and weakness in her left hand. In addition patient reports pain/tingling sensation to her right temporal/occipital region of her head accompanied by an intermittent episode of changes in her vision. She denies hitting her head or experiencing any falls or recent injuries and denies experiencing any neck or back pain. Patient denies being on any blood thinners and denies ever having an experience like this in the past. She denies having any fevers, chills, dizziness, lightheadedness, changes in hearing or tinnitus, difficulty with her speech or swallowing, chest pain, palpitations, shortness of breath, or experiencing any noted numbness or weakness in her lower extremities. She states this numbness/tingling and weakness in her left hand has waxed and waned over the past few hours. Patient presented to the emergency department and underwent full evaluation. CT brain was completed and negative for acute intercranial hemorrhage revealing mild to moderate diffuse age related cerebral atrophy and chronic small vessel ischemic changes. EKG completed showing normal sinus rhythm at 66 bpm with no noted T wave or ST abnormality showing no signs of acute ischemia upon personal review and interpretation. Chest x-ray negative for acute process. Labs completed and reviewed. CBC, coagulation profile, and CMP were unremarkable. Troponin negative at less than 0.012. TSH normal at 2.310. Patient given aspirin 324 mg by mouth 1 dose and admitted under our services with consultation to neurology. Physical exam: Patient seen and fully evaluated at bedside. He is preparing to get echo completed at this time. Patient reports that she has been ambulating without any difficulties but has had noticed pain in her left calf that was not there previously. No swelling, bruising, or redness noted. Order placed for left lower extremity Doppler to rule out DVT. Patient denies any further episodes of numbness/tingling/weakness in her left hand. Awaiting MRI to be completed an echo to result. Vital signs reviewed and stable. General: Nontoxic, no distress and appears stated age. Derm: Skin warm and dry, normal coloration for ethnicity. Head: Atraumatic, normocephalic and symmetric. Eyes: EOMs intact, no lid lag, and anicteric sclera Mouth: no lip lesions, mucus membranes moist Cardiovascular: regular rate and rhythm with normal S1S2, systolic murmur, positive posterior tibial pulses bilaterally, and cap refill < 2 seconds. Lungs: Respirations even, regular, and unlabored on room air. Lungs CTA bilaterally, no rhonchi, no rales, no wheezing, and no accessory muscle usage. Abdominal: soft, nontender to palpation, no guarding, no appreciable organomegaly Ext: ROM intact. No gross muscle atrophy, no edema, no contractures. Patient reports left calf pain, no erythema, discoloration, or edema noted. Neuro: Speech clear, face symmetrical and CN II-XII grossly intact with no noted focal neuro deficits. GCS 15. Currently no neurological deficits noted at this time. Psych: Alert and oriented to person, place, time, and situation. Appropriate and pleasant affect. Assessment and Plan of Care: Left upper extremity weakness, numbness and tingling, rule out TIA versus CVA Right temporal headache Left lower extremity pain Hypertension Hyperlipidemia History of breast cancer status post lumpectomy on Evista -Hemoglobin A1c resulting of 5.9%. Lipid profile revealing slightly elevated cholesterol of 242 and LDL of 166. Patient is on atorvastatin 40 mg daily at this time and will plan to discharge patient home on this medication as well. -Neurology following, awaiting completion of MRI and recommending patient to co ntinue daily medication regimen with aspirin and Plavix pending further results. -Bilateral carotid Dopplers were completed negative showing no sonographic evidence for hemodynamically significant carotid stenosis. -Echocardiogram revealing an EF of 55-60% with mild tricuspid regurgitation. -EEG was completed and awaiting results. -MRI brain was ordered and awaiting completion. -Continue to Hold the Evista at this time as has been known to result in thromboembolism and stroke -Continue daily antihypertensive medications with amlodipine 5 mg daily, losartan 50 mg daily, and metoprolol 50 mg daily. Vital signs have been stable with morning blood pressure 146/78 and heart rate 80. -Order placed for left lower extremity Doppler to rule out DVT secondary to patient's new reports of left calf pain. CODE STATUS: Full code DVT prophylaxis: Heparin Discussed with: Patient, RN and neurologist Anticipated discharge date: Clinical course to determine Anticipated discharge place:Home Patient was seen independently by Nurse Practitioner. This document was prepared using [employer] dictation software. Please allow for errors in rod finisher while rare they do occur. I reviewed the documentation as provided by the IRLANDA above, who is the original author of this note. I agree with the documented assessment and plan, with the following changes: none Objective - Vital Signs Vital signs: Vital Signs Temp 97.5 F L 11/04/22 04:00 Pulse 72 11/04/22 04:00 Resp 18 11/04/22 04:00 BP 115/61 11/04/22 04:00 Pulse Ox 95 11/04/22 04:00 FiO2 Intake & Output 11/03/22 11/04/22 11/04/22 18:59 06:59 18:59 Intake Total 550 1000 240 Balance 550 1000 240 Intake: Oral 550 1000 240 Other: Voiding Method Toilet Toilet # Voids 2 2 - Labs CBC & Chem 7: 11/04/22 10:56 11/04/22 10:56
--- NOTE | 2022-11-04 10:50 | US ---
EXAMINATION TYPE: US venous doppler duplex LE LT DATE OF EXAM: 11/04/2022 10:27 AM COMPARISON: NONE CLINICAL INDICATION: Female, 77 years old with history of r/o DVT, pt now w. pain LLE; tenderness in left calf twice, no h/o dvt SIDE PERFORMED: Left TECHNIQUE: The lower extremity deep venous system is examined utilizing real time linear array sonog diogo with graded compression, doppler sonography and color-flow sonography. VESSELS IMAGED: Common Femoral Vein Deep Femoral Vein Greater Saphenous Vein * Femoral Vein Popliteal Vein Small Saphenous Vein * Proximal Calf Veins (* superficial vessels) Left Leg: Negative for DVT IMPRESSION: Grayscale, color doppler, spectral doppler imaging performed of the deep veins of the lo wer extremities. There is normal flow, compressibility, vascular waveforms.
[2022-11-04 11:09] LABS: HCT 44.5 % (34.0-46.0); HGB 14.5 gm/dL (11.4-16.0); MCH 32.9 pg (25.0-35.0); MCHC 32.6 g/dL (31.0-37.0); MCV 100.9 fL (80.0-100.0); Macrocytosis Slight; Mean Platelet Volume 7.5; Platelet Count 270 k/uL (150-450); RBC 4.41 m/uL (3.80-5.40); RDW 13.6 % (11.5-15.5); WBC 5.9 k/uL (3.8-10.6)
[2022-11-04 11:20] LABS: African American GFR (CKD) >90 (>60 ml/min/1.73 sqM); Anion Gap 11 mmol/L; Blood Urea Nitrogen 19 mg/dL (7-17); Calcium 9.6 mg/dL (8.4-10.2); Carbon Dioxide 21 mmol/L (22-30); Chloride 106 mmol/L (98-107); Glucose 102 mg/dL (74-99); Magnesium 2.1 mg/dL (1.6-2.3); Non-African American GFR(CKD) 85 (>60 ml/min/1.73 sqM); Potassium 4.6 mmol/L (3.5-5.1); Sodium 138 mmol/L (137-145)
--- NOTE | 2022-11-04 11:42 | CA ---
Transthoracic Echo Report Name: Marie Patel Age: 77 Gender: F : 1945 Exam Date: 11/04/2022 09:27 Exam Location: [facility] Ht (in): 60 Wt (lb): 170 Ordering Physician: Reid Puente Attending/Referring Phys: Pasting Inspector eMera Hood RDCS Procedure CPT: Indications: TIA vs CVA Cardiac Hx: Technical Quality: Fair Contrast 1: Total Dose (mL): Contrast 2: Total Dose (mL): MEASUREMENTS (Male / Female) Normal Values 2D ECHO LV Diastolic Diameter PLAX 3.7 cm 4.2 - 5.9 / 3.9 - 5.3 cm LV Systolic Diameter PLAX 2.5 cm IVS Diastolic Thickness 1.1 cm 0.6 - 1.0 / 0.6 - 0.9 cm LVPW Diastolic Thickness 1.0 cm 0.6 - 1.0 / 0.6 - 0.9 cm LV Relative Wall Thickness 0.6 RV Internal Dim ED PLAX 3.0 cm LA Systolic Diameter LX 3.1 cm 3.0 - 4.0 / 2.7 - 3.8 cm LA Volume 32.2 cm??? 18 - 58 / 22 - 52 cm??? M-MODE Aortic Root Diameter MM 2.6 cm AV Cusp Separation MM 1.9 cm DOPPLER AV Peak Velocity 137.0 cm/s AV Peak Gradient 7.5 mmHg MV Area PHT 3.6 cm??? Mitral E Point Velocity 82.0 cm/s Mitral A Point Velocity 114.9 cm/s Mitral E to A Ratio 0.7 MV Deceleration Time 209.7 ms MV E' Velocity 7.7 cm/s Mitral E to MV E' Ratio 10.6 TR Peak Velocity 213.8 cm/s TR Peak Gradient 18.3 mmHg Right Ventricular Systolic Press 23.3 mmHg FINDINGS Left Ventricle Left ventricular ejection fraction is estimated at 55-60 %. Small left ventricular cavity. Mildly increased septal wall thickness. Mildly increased posterior wall thickness. Right Ventricle Normal right ventricular size. Right ventricular systolic pressure within normal limits. Right Atrium Normal right atrial size. Left Atrium Normal left atrial size. Mitral Valve Structurally normal mitral valve. No mitral stenosis, regurgitation or prolapse. Aortic Valve Trileaflet aortic valve. No aortic valve stenosis or regurgitation. Tricuspid Valve Structurally normal tricuspid valve. Mild tricuspid regurgitation. Pulmonic Valve Structurally normal pulmonic valve. Trace pulmonic regurgitation. Pericardium Normal pericardium. No pericardial effusion. Aorta Normal size aortic root and proximal ascending aorta. CONCLUSIONS Normal LV systolic function Mild tricuspid regurgitation Previewed by: Dr. Kirk Mccray MD (Electronically Signed) Final Date: 04 Nov 2022 11:41
[2022-11-04] MEDS: ATORVASTATIN 40 MG TAB PO SCH (19:55)
--- NOTE | 2022-11-05 08:30 | EEG ---
ELECTROENCEPHALOGRAM REPORT PREAMBLE: This is a 77-year-old female, who has recurrent left-sided weakness. This study is performed to rule out any epileptiform activity. CURRENT MEDICATIONS: 1. Norvasc. 2. Aspirin. 3. Lipitor. 4. Plavix. 5. Vitamin B12. 6. Cozaar. 7. Toprol-XL. EEG FINDINGS: This is a 21-channel digital EEG recorded with video component, utilizing 10/20 International System with referential and bipolar montages. Background consists of well-developed, well-regulated, moderate-voltage activity, mixed 10 to 11 Hz alpha, with some low-voltage fast-frequency beta activity seen in bihemispheric region. Background is posterior dominant and reactive to eye opening and closing. Photic driving response was seen with some flash frequencies. Different stages of sleep were not seen. No focal or generalized epileptiform activity was seen. EKG channel showed no obvious arrhythmia. IMPRESSION: This is a normal awake and drowsy EEG. No focal, lateralized, or epileptiform activity was seen. MMODL / IJN: [id number] /
[2022-11-05] MEDS: METOPROLOL SUCCINATE (ER) 50 MG TAB.ER.24H PO SCH (09:08)
[2022-11-05] MEDS: CYANOCOBALAMIN 500 MCG TAB PO SCH (09:08)
[2022-11-05] MEDS: CLOPIDOGREL 75 MG TAB PO SCH (09:08)
[2022-11-05] MEDS: LOSARTAN 50 MG TAB PO SCH (09:08)
[2022-11-05] MEDS: amLODIPine 5 MG TAB PO SCH (09:08)
[2022-11-05] MEDS: ASPIRIN 325 MG TAB PO SCH (09:08)
[2022-11-05] MEDS: HEPARIN SODIUM,PORCINE/PF 5,000 UNIT/0.5 ML SYRINGE SQ SCH (09:09)
[2022-11-05 09:14] VITALS: RESP 16; TEMP 97.8
--- NOTE | 2022-11-05 10:53 | P.PN ---
Subjective Progress Note Date: 11/04/22 11/04/2022: Patient was seen for a follow-up. Patient offers no new complaints. Patient was seen walking in the hallway, waiting for MRI to be done. Patient feels she is back to baseline. Telemetry monitoring showing sinus rhythm. 11/03/2022: Patient was initially seen by Dr. Florencio Magaña. Please refer to his note for details. Patient is a 77-year-old female who had recurrent transient left upper extremity weakness and numbness. At present patient has no symptoms. Patient's was also present today. Patient states that she has been walking well in the hallway. She feels back to baseline. Patient was not taking any antiplatelet medication prior to arrival to the hospital. Some of the workup during his hospital visit consisted of: CBC with differential on top present management metabolic panel is unremarkable Lipid panel is triglyceride 87, cholesterol is 242, LDLs 166 and HDL 58 Vitamin B12 is 309, folate is 9.60 TSH is 2.3.0 [address] is 5.9. CT of the head is reported as no acute intracranial hemorrhage of midline shift. There is mild to moderate diffuse age-related cerebral atrophy and chronic small vessel ischemic changes noted. I personally reviewed the CT I agree there is no acute or subacute ischemia. There is no bleed. EKG is reported as sinus rhythm. Borderline left axis deviation. Carotid duplex is reported as no sonographic at evidence for hemodynamically significant carotid stenosis bilaterally. Bilateral atherosclerotic disease Objective - Vital Signs Vital signs: Vital Signs Temp 97.5 F L 11/04/22 08:00 Pulse 68 11/04/22 16:00 Resp 16 11/04/22 16:00 BP 122/74 11/04/22 16:00 Pulse Ox 96 11/04/22 16:00 FiO2 Intake & Output 11/03/22 11/04/22 11/04/22 18:59 06:59 18:59 Intake Total 550 1000 720 Balance 550 1000 720 Intake: Oral 550 1000 720 Other: Voiding Method Toilet Toilet Toilet # Voids 2 2 - Exam Patient's mental status, speech and language functions are normal. Cranial nerves are normal. Muscles are normal. No ataxia. Sensations equal. Gait is perfectly normal. - Labs CBC & Chem 7: 11/04/22 10:56 11/04/22 10:56 Labs: Abnormal Lab Results - Last 24 Hours (Table) 11/04/22 11/04/22 Range/Units 10:56 10:56 MCV 100.9 H (80.0-100.0) fL Carbon Dioxide 21 L (22-30) mmol/L BUN 19 H (7-17) mg/dL Glucose 102 H (74-99) mg/dL Assessment and Plan Assessment: This is a 77-year-old woman who presented the to the emergency because of recurrent left upper extremity weakness and some numbness but predominantly weakness and had multiple episode on the day of arrival. Recurrent episodes of left upper extremity weakness distally with some numbness: Likely TIA Low normal vitamin B12 (309) History of hypertension Borderline hypercholesteremia Plan: I started the patient on aspirin 325 mg daily and Plavix 75 mg daily. Recommend the patient to be on dual antiplatelets and after 21 days, continue aspirin indefinitely but stop Plavix. Patient was not taking any antiplatelet medication at home prior. Continue Lipitor 40 mg daily at bedtime for secondary stroke prophylaxis Pending MRI Brain 2-D echo revealed normal left-ventricular systolic function, mild tricuspid regurgitation, EF is 55-60%, normal left atrial size. Every 4 hours neuro checks Placed on cardiac monitoring PT and OT are consulted Routine EEG is normal awake pattern. No epileptiform activity was seen. For low normal vitamin B12: started the patient on Vitamin B12 1000mcg daily with IM once. We'll defer the rest of the medical management to primary team For DVT prophylaxis: subcu heparin 5000 units every 12 hours Neurologically clear, if the MRI comes back normal.
--- NOTE | 2022-11-05 11:16 | MR ---
EXAMINATION TYPE: MR brain wo/w con DATE OF EXAM: 11/05/2022 COMPARISON: CT brain 4 days ago HISTORY: Left arm weakness, evaluate for stroke. TECHNIQUE: Multiplanar, multisequence images of the brain and brainstem is performed without and with IV contras t, utilizing 8 mL intravenous Gadavist . FINDINGS: Diffusion weighted images demonstrate multifocal areas of increased signal on diffusion curly ghted images with diminished signal on ADC mapping throughout the high right frontal parietal and occ ipital lobes corresponding to areas of T2 hyperintensity. For reference one Larger area measures 8 mm long axis posterior right frontal lobe image 176 series 303. There is larger 10 mm superficial parie aurelio occipital lesion image 192. Mild ventricular and sulcal prominence. There are scattered foci of T2 hyperintensity seen throughout the white matter bilaterally. Approximately 40 scattered lesions are seen. Midline structures demonstrate normal morphology. The craniocervical junction appears within normal limits. Post contrast images demonstrate no abnormal enhancement. The dural venous sinuses appear pa tent. The visualized sinuses are clear and the globes are intact. IMPRESSION: 1. Multifocal evolving right-sided acute lacunar infarcts are confirmed as detailed above. 2. There is bilateral mild diffuse cerebral atrophy and moderate chronic small vessel ischemic change noted. Perfect serve notification to ordering neurologist performed at time of dictation.
[2022-11-05 12:38] VITALS: BP 110/69; PULSE 70
[2022-11-05] MEDS ORDERED: FAMOTIDINE 20 MG TAB PO SCH (13:15)
--- NOTE | 2022-11-05 13:19 | P.PN ---
Subjective Progress Note Date: 11/05/22 11/05/2022: Patient was seen for a follow-up. Patient's was also present today. Patient states that she feels back to baseline. Patient states that she was diagnosed with breast cancer 18 months ago. She had undergone lumpectomy followed by 5 weeks section of radiotherapy. Patient is currently on Evista as hormonal therapy. Patient was not taking any antiplatelet medication at home prior to arrival. 11/04/2022: Patient was seen for a follow-up. Patient offers no new complaints. Patient was seen walking in the hallway, waiting for MRI to be done. Patient feels she is back to baseline. Telemetry monitoring showing sinus rhythm. 11/03/2022: Patient was initially seen by Dr. Florencio Magaña. Please refer to his note for details. Patient is a 77-year-old female who had recurrent transient left upper extremity weakness and numbness. At present patient has no symptoms. Patient's was also present today. Patient states that she has been walking well in the hallway. She feels back to baseline. Patient was not taking any antiplatelet medication prior to arrival to the hospital. Some of the workup during his hospital visit consisted of: CBC with differential on top present management metabolic panel is unremarkable Lipid panel is triglyceride 87, cholesterol is 242, LDLs 166 and HDL 58 Vitamin B12 is 309, folate is 9.60 TSH is 2.3.0 [address] is 5.9. CT of the head is reported as no acute intracranial hemorrhage of midline shift. There is mild to moderate diffuse age-related cerebral atrophy and chronic small vessel ischemic changes noted. I personally reviewed the CT I agree there is no acute or subacute ischemia. There is no bleed. EKG is reported as sinus rhythm. Borderline left axis deviation. Carotid duplex is reported as no sonographic at evidence for hemodynamically significant carotid stenosis bilaterally. Bilateral atherosclerotic disease. Antegrade flow in both vertebral arteries. Objective - Vital Signs Vital signs: Vital Signs Temp 97.8 F 11/05/22 08:00 Pulse 70 11/05/22 12:00 Resp 16 11/05/22 12:00 BP 110/69 11/05/22 12:00 Pulse Ox 97 11/05/22 12:00 FiO2 Intake & Output 11/04/22 11/05/22 11/05/22 18:59 06:59 18:59 Intake Total 720 540 240 Balance 720 540 240 Intake: Oral 720 540 240 Other: Voiding Method Toilet Toilet Toilet # Voids 2 - Exam Patient's mental status, speech and language functions are normal. Cranial nerves are normal. Muscles are normal. There is very minimal left pronation, no drift. No ataxia. Sensations equal. Gait is perfectly normal. - Labs CBC & Chem 7: 11/04/22 10:56 11/04/22 10:56 Assessment and Plan Assessment: This is a 77-year-old woman who presented the to the emergency because of recurrent left upper extremity weakness and some numbness but predominantly weakness and had multiple episode on the day of arrival. Acute ischemic stroke, multifocal involving right hemispheric region. Likely embolic in nature. Low normal vitamin B12 (309) History of hypertension Borderline hypercholesteremia Plan: I started the patient on aspirin 325 mg daily and Plavix 75 mg daily. Recommend the patient to be on dual antiplatelets and after 30 days, continue aspirin indefinitely but stop Plavix. Patient was not taking any antiplatelet medication at home prior. After 3 months, may decrease aspirin to 81 mg daily. Continue Lipitor 40 mg daily at bedtime for secondary stroke prophylaxis MRI Brain revealed multifocal involving right sided acute ischemic lacunar infarctions. There is bilateral mild diffuse cerebral atrophy and moderate chronic small vessel ischemic change noted. I personally reviewed MRI, agree with the findings of multifocal evolving acute ischemic strokes right hemispheric region, but are NOT lacunar, most likely embolic in nature. 2-D echo revealed normal left-ventricular systolic function, mild tricuspid regurgitation, EF is 55-60%, normal left atrial size. Telemetry monitoring so far showing sinus rhythm. No arrhythmia. Routine EEG is normal awake pattern. No epileptiform activity was seen. For low normal vitamin B12: started the patient on Vitamin B12 1000mcg daily with IM once. Neurologically clear. Recommend patient follow up with neurologist locally, as she is from [place].
--- NOTE | 2022-11-05 14:46 | P.DS ---
Providers Date of admission: 11/01/22 09:29 Expected date of discharge: 11/05/22 Attending physician: Jamie Live MD Consults: 11/01/22 10:52 Consult Physician Stat Consulting Provider: Florencio Magaña Consult Reason/Comments: left arm numbess Do you want consulting provider notified?: Yes Primary care physician: Physician Nonstaff Hospital Course: Admitting diagnoses: Left upper extremity weakness, numbness and tingling, rule out TIA versus CVA Hypertension Hyperlipidemia History of breast cancer status post lumpectomy on Evista Discharge diagnoses: Left upper extremity weakness secondary to right acute lacunar infarct Hypertension Hyperlipidemia History of breast cancer status post lumpectomy on Evista (Evista has been discontinued until further evaluation with oncology) Patient is a very pleasant 77-year-old female with a past medical history of hypertension, hyperlipidemia, and breast cancer status post lumpectomy currently on Evista. She presented to the emergency department secondary to left hand numbness and weakness. Patient reports awakening this morning and felt as though her peak may have been swollen and was unable to get her rings off her pinky finger. 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 Patient reports she went to put a plastic bag in her car but when she bent over to pick it up she was unable to grab it or hold onto it dropping at 8 times. This is when she realized she was having numbness and weakness in her left hand. In addition patient reports pain/ tingling sensation to her right temporal/occipital region of her head accompanied by an intermittent episode of changes in her vision. She denies hitting her head or experiencing any falls or recent injuries and denies experiencing any neck or back pain. Patient denies being on any blood thinners and denies ever having an experience like this in the past. She denies having any fevers, chills, dizziness, lightheadedness, changes in hearing or tinnitus, difficulty with her speech or swallowing, chest pain, palpitations, shortness of breath, or experiencing any noted numbness or weakness in her lower extremities. She states this numbness/tingling and weakness in her left hand has waxed and waned over the past few hours. Patient presented to the emergency department and underwent full evaluation. CT brain was completed and negative for acute intercranial hemorrhage revealing mild to moderate diffuse age related cerebral atrophy and chronic small vessel ischemic changes. EKG completed showing normal sinus rhythm at 66 bpm with no noted T wave or ST abnormality showing no signs of acute ischemia upon personal review and interpretation. Chest x-ray negative for acute process. Labs completed and reviewed. CBC, coagulation profile, and CMP were unremarkable. Troponin negative at less than 0.012. TSH normal at 2.310. Patient given aspirin 324 mg by mouth 1 dose and admitted under our services with consultation to neurology. Physical exam: General: [non toxic], [no distress], [appears at stated age] Derm: [warm], [dry] Head: [atraumatic], [normocephalic], [symmetric] Eyes: [EOMI], [no lid lag], [anicteric sclera] Mouth: [no lip lesion], [mucus membranes moist] Cardiovascular: [S1S2 reg], [no murmur], [positive posterior tibial pulse bilateral], Lungs: [CTA bilateral], [no rhonchi, no rales] , [no accessory muscle use] Abdominal: [soft], [ nontender to palpation], [no guarding], [no appreciable organomegaly] Ext: [no gross muscle atrophy], [no edema], [no contractures] Neuro: [ CN II-XI grossly intact], [no focal neuro deficits] Psych: [Alert], [oriented], [appropriate affect] Clinical Course: Left upper extremity weakness, numbness and tingling, rule out TIA versus CVA Right temporal headache Left lower extremity pain Hypertension Hyperlipidemia History of breast cancer status post lumpectomy on Evista -Hemoglobin A1c resulting of 5.9%. Lipid profile revealing slightly elevated cholesterol of 242 and LDL of 166. Patient is on atorvastatin 40 mg daily at this time and will plan to discharge patient home on this medication as well. -Neurology followed -MRI was positive for right acute lacunar infarct: Patient is to continue full dose aspirin with Plavix for 30 days. After completion, patient is to only take full dose aspirin for the next 90 days. Once this has been completed, patient may reduce aspirin to 81 mg daily. -Bilateral carotid Dopplers were completed negative showing no sonographic evidence for hemodynamically significant carotid stenosis. -Echocardiogram revealing an EF of 55-60% with mild tricuspid regurgitation. -EEG was completed and was also found to be normal. No focal, lateralized, or epileptiform activity was seen. -Continue to Hold the Evista at this time as has been known to result in thromboembolism and stroke -Continue daily antihypertensive medications with amlodipine 5 mg daily, losartan 50 mg daily, and metoprolol 50 mg daily. Vital signs have been stable with morning blood pressure 146/78 and heart rate 80. -Order placed for left lower extremity Doppler to rule out DVT secondary to patient's new reports of left calf pain: Lower extremity Doppler was negative for DVT CODE STATUS: Full code Anticipated discharge date: November 05, [address]:Home Activity: As tolerated Diet: Cardiac Condition: Fair Follow-up with PCP within one week Follow-up with oncology within 1 week Follow-up with neurology in 1-2 weeks This document was prepared using [employer] dictation software. Please allow for errors in director meetings while rare they do occur. Patient Condition at Discharge: Fair Plan - Discharge Summary Discharge Rx Participant: Yes New Discharge Prescriptions: New Atorvastatin [Lipitor] 40 mg PO HS #30 tab amLODIPine [Norvasc] 5 mg PO DAILY #30 tab Famotidine [Pepcid] 20 mg PO BID #60 tab Aspirin 325 mg PO DAILY #30 tab Clopidogrel [Plavix] 75 mg PO DAILY #30 tab Cyanocobalamin [Vitamin B-12] 1,000 mcg PO DAILY #30 tab Continue Losartan [Cozaar] 50 mg PO DAILY Metoprolol Succinate (ER) [Toprol XL] 50 mg PO DAILY Discontinued Raloxifene [Evista] 60 mg PO HS amLODIPine BESYLATE 5 mg PO DAILY Discharge Medication List Losartan [Cozaar] 50 mg PO DAILY 11/01/22 [History] Metoprolol Succinate (ER) [Toprol XL] 50 mg PO DAILY 11/01/22 [History] Aspirin 325 mg PO DAILY #30 tab 11/05/22 [Rx] Atorvastatin [Lipitor] 40 mg PO HS #30 tab 11/05/22 [Rx] Clopidogrel [Plavix] 75 mg PO DAILY #30 tab 11/05/22 [Rx] Cyanocobalamin [Vitamin B-12] 1,000 mcg PO DAILY #30 tab 11/05/22 [Rx] Famotidine [Pepcid] 20 mg PO BID #60 tab 11/05/22 [Rx] amLODIPine [Norvasc] 5 mg PO DAILY #30 tab 11/05/22 [Rx] Follow up Appointment(s)/Referral(s): Nonstaff,Physician [Primary Care Provider] - 3 Days (Patient needs to follow-up with oncologist to discuss medication discontinuation Patient is to follow-up with a neurologist in [place] with PCP referral ) Discharge Disposition: HOME SELF-CARE Plan of Treatment: Continue full dose ASA and plavix for a total of 30 days. Then discontinue plavix and continue Full dose aspirin for 90 days. After 90 days may decrease full dose aspirin to Aspirin 81mg daily Continue Lipitor 40mg daily You will need to obtain refills from PCP. Continue amlodipine 5mg daily, continue metoprolol 50mg castillo, continue losartan 50mg daily DISCONTINUE EVISTA follow-up with oncologist to discuss other treatment options. Famotidine added to protect the stomach
== END 2022-11-05 15:41 | disposition home or self-care (01) | DRG 66 ==
LOC: EC 06:53 → 3SCARD 09:29
PROVIDERS: ADMIT Student in an Organized Health Care Education/Training Program; ATTEND Student in an Organized Health Care Education/Training Program
DX: I63.81 Other cerebral infarction due to occlusion or stenosis of small artery (principal); E78.00 Pure hypercholesterolemia, unspecified; I10 Essential (primary) hypertension; R29.702 NIHSS score 2; Z85.3 Personal history of malignant neoplasm of breast; Z79.899 Other long term (current) drug therapy; Z88.2 Allergy status to sulfonamides; Z79.810 Long term (current) use of selective estrogen receptor modulators (SERMs)
CPT/HCPCS: 36415; 70450; 70553; 71045; 80048; 80053; 80061; 82550; 82607; 82746; 83036; 83735; 84443; 84484; 85025; 85027; 85610; 85730; 93005; 93306; 93880; 94760; 95816; 99285